=== PATIENT | female | born 1990 | race Caucasian/White ===

== ENCOUNTER 2016-12-08 11:36 | Emergency (ER) | payer MEDICAID ==
[2016-12-08 17:25] LABS: Bilirubin,Urine NEG (Negative); Blood,Urine NEG (Negative); Ketones,Urine NEG (Negative); Leukocyte Esterase,Urine NEG (Negative); Nitrite,Urine NEG (Negative); Protein,Urine <15 mg/dL mg/dL (Negative); Urobilinogen,Urine < 2.0 mg/dL (<2.0); WBC,Urine < 1.0 /HPF (0.0-6.0)
--- NOTE | 2016-12-08 18:30 | Cat Scan Report ---
FINAL REPORT PROCEDURE: CT thoracic spine without contrast. TECHNIQUE: Computerized axial tomography of the thoracic spine was performed from C7 - L1 without contrast material. HISTORY: Patient fell, midline back pain. COMPARISON: No prior studies are available for comparison. FINDINGS: The thoracic vertebrae have normal height and alignment. There are no fractures. There is no subluxation. The disc spaces are well maintained. The spinal canal appears widely patent. The posterior elements appear intact. The paravertebral soft tissues are unremarkable. IMPRESSION: Normal study.
--- NOTE | 2016-12-08 18:34 | Cat Scan Report ---
FINAL REPORT PROCEDURE: CT lumbar spine without contrast. TECHNIQUE: Computerized axial tomography of the lumbar spine was performed from T12 to the sacrum without contrast material. HISTORY: Patient fell, midline back pain. COMPARISON: No prior studies are available for comparison. FINDINGS: The lumbar vertebrae have normal height and alignment. There are no fractures. There is no spondylolisthesis. The disc spaces are well maintained. There are no definite disc protrusions, although this is much better evaluated by MRI scanning. The spinal canal appears widely patent. The posterior elements appear intact. The paravertebral soft tissues are unremarkable. IMPRESSION: Normal study.
--- NOTE | 2016-12-08 19:19 | Emergency Department Report ---
Entered by MEENU WALLACE, acting as scribe for DENNIS MOSS PA. ED Fall HPI - General Chief Complaint: Fall Stated Complaint: FALL Time Seen by Provider: 12/08/16 15:00 Source: patient Mode of arrival: Ambulatory Limitations: No Limitations - History of Present Illness Initial Comments: 26 y/o female with a PMHx of Kawasaki disease presents to the ED c/o mid-back pain secondary to a fall that occurred last night. Patient states that she was walking while holding daughter and subsequently fell down 4 steps. Rates mid back pain an 8/10 in severity. Denies nausea, vomiting, urgency, frequency, dysuria, bowel/urinary incontinence, LOC, and numbness/tingling in legs. Denies head injury. Denies previous Hx of back pain. Denies taking OTC medications for mid back pain with no relief. LMP 11/06/2016. Complaint: fall -: Last night Fall From: down stairs (#) (4) When Fall Occurred: other (last night) Fall Witnessed: yes, by family Place Fall Occurred: home Loss of Consciousness: none Prolonged Down Time?: no Symptoms Prior to Fall: none Location: back (mid back and lower back pain) Severity: moderate Severity scale (0 -10): 8 Quality: aching Context: tripped/slipped Associated Symptoms: headache, other (mid back pain, but denies nausea, vomiting , frequency, dysuria, bowel/urinary incontinence, numbness/tingling in bilateral legs). denies: neck pain, numbness, weakness, chest paint, shortness of breath, abdominal pain, hematuria, unable to walk, lightheaded, vertigo, confusion - Related Data Previous Rx's Medication Instructions Recorded Last Taken Type Cyclobenzaprine [Flexeril] 10 mg PO TID PRN #15 tablet 12/08/16 Unknown Rx Ibuprofen [Motrin] 600 mg PO Q8H PRN #15 tablet 12/08/16 Unknown Rx Allergies Allergy/AdvReac Type Severity Reaction Status Date / Time No Known Allergies Allergy Verified 12/08/16 12:37 ED Review of Systems Comment: All other systems reviewed and negative Constitutional: denies: chills, other (tingling in legs) Eyes: denies: vision change ENT: denies: throat pain, epistaxis Respiratory: no symptoms reported Cardiovascular: denies: chest pain, palpitations, edema, syncope Gastrointestinal: denies: abdominal pain, nausea, vomiting Genitourinary: denies: urgency, dysuria, frequency, hematuria, other (bowel/ urinary incontinence) Musculoskeletal: back pain (mid back pain and lower back pain) Skin: denies: rash Neurological: headache. denies: numbness (numbness in legs), paresthesias, confusion, abnormal gait, vertigo ED Past Medical Hx - Past Medical History Previous Medical History?: Yes Additional medical history: kawasaki disease, dental caries - Surgical History Past Surgical History?: Yes Additional Surgical History: 03/15/2010 - Family History Family history: no significant - Social History Smoking Status: Never Smoker Substance Use Type: None - Medications Home Medications: Home Medications Medication Instructions Recorded Confirmed Last Taken Type Cyclobenzaprine [Flexeril] 10 mg PO TID PRN #15 tablet 12/08/16 Unknown Rx Ibuprofen [Motrin] 600 mg PO Q8H PRN #15 tablet 12/08/16 Unknown Rx ED Physical Exam - General Limitations: No Limitations General appearance: alert, in no apparent distress - Head Head exam: Present: atraumatic, normocephalic - Expanded Head Exam Expanded Head exam: Absent: laceration, abrasion, contusion, hematoma, racoon eyes, lane's sign, general tenderness, tenderness of temporal artery, CSF rhinorrhea , CSF otorrhea - Eye Eye exam: Present: normal appearance, PERRL, EOMI. Absent: nystagmus, periorbital swelling, periorbital tenderness Pupils: Present: normal accommodation - ENT ENT exam: Present: normal exam, normal orophraynx, mucous membranes moist, TM's normal bilaterally, normal external ear exam - Neck Neck exam: Present: normal inspection (supple), full ROM. Absent: tenderness, meningismus, lymphadenopathy - Expanded Neck Exam Expanded Neck exam: Absent: tenderness, midline deformity, anterior neck swelling, tracheal deviation - Respiratory Respiratory exam: Present: normal lung sounds bilaterally. Absent: respiratory distress, wheezes, rales, rhonchi, chest wall tenderness - Cardiovascular Cardiovascular Exam: Present: regular rate, normal rhythm, normal heart sounds. Absent: systolic murmur, diastolic murmur, rubs, gallop - GI/Abdominal GI/Abdominal exam: Present: soft, normal bowel sounds. Absent: distended, tenderness, guarding, rebound, rigid - Extremities Exam Extremities exam: Present: normal inspection, full ROM, normal capillary refill. Absent: tenderness, pedal edema, joint swelling, calf tenderness - Back Exam Back exam: Present: normal inspection, full ROM, tenderness (lumbar, thoracic vertebral tenderness), vertebral tenderness (lumbar vertebral tenderness), other (low back pain with squatting) - Expanded Back Exam Expanded Back exam: Absent: saddle anesthesia Back exam: Negative Straight Leg Raising: Left, Right - Neurological Exam Neurological exam: Present: alert, oriented X3, normal gait, reflexes normal. Absent: motor sensory deficit - Expanded Neurological Exam Expanded Neurological exam: Absent: innattentive, memory loss-remote event, memory loss- recent event, ataxia, receptive aphasia, expressive aphasia, total aphasia, tremor, protecting the airway Patient oriented to: Present: person, place Speech: Present: fluid speech Cranial nerves: EOM's Intact: Normal, Gag Reflex: Normal, Tongue Deviation: Normal, Nystagmus: Normal, Facial Sensation: Normal Cerebellar function: Finger to Nose: Normal, Romberg: Normal Upper motor neuron: Pronator Drift: Normal, Sensory Extinction: Normal Sensory exam: Upper Extremity Light Touch: Normal, Upper Extremity Temperature: Normal, UE 2 Point Discrimination: Normal, Lower Extremity Light Touch: Normal, Lower Extremity Temperature: Normal, LE 2 Point Discrimination: Normal Motor strength exam: RUE: 5, LUE: 5, RLE: 5, LLE: 5 DTR: bicep (R): 2+, bicep (L): 2+, tricep (R): 2+, tricep (L): 2+, knee (R): 2+ , knee (L): 2+, ankle (R): 2+, ankle (L): 2+ Best Eye Response (Hunter): (4) open spontaneously Best Motor Response (Union): (6) obeys commands Best Verbal Response (Union): (5) oriented Union Total: 15 - Psychiatric Psychiatric exam: Present: normal affect, normal mood - Skin Skin exam: Present: warm, dry, intact, normal color. Absent: rash ED Course Vital Signs 12/08/16 12:37 Temperature 98.4 F Pulse Rate 64 Respiratory 17 Rate Blood Pressure 139/80 O2 Sat by Pulse 100 Oximetry - Reevaluation(s) Reevaluation #1: 12/08/16 19:11 Stable throughout ED stay ED Medical Decision Making - Lab Data Lab Results 12/08/16 Range/Units Unknown Urine Color Colorless (Yellow) Urine Turbidity Clear (Clear) Urine pH 8.0 H (5.0-7.0) Ur Specific [place] 1.006 (1.003-1.030) Urine Protein <15 mg/dl (Negative) mg/dL Urine Glucose (UA) Neg (Negative) mg/dL Urine Ketones Neg (Negative) mg/dL Urine Blood Neg (Negative) Urine Nitrite Neg (Negative) Ur Reducing Substances Not Reportable Urine Bilirubin Neg (Negative) Urine Ictotest Not Reportable Urine Urobilinogen < 2.0 (<2.0) mg/dL Ur Leukocyte Esterase Neg (Negative) Urine WBC (Auto) < 1.0 (0.0-6.0) /HPF Urine RBC (Auto) 0.0 (0.0-6.0) /HPF Urine HCG, Qual Negative (Negative) - Radiology Data Radiology results: report reviewed CT scan of the thoracic and lumbar spine revealed normal exam. - Medical Decision Making ED course: Patient here complaining of thoracic and lumbar spine pain after falling last night. CT scan revealed normal thoracic and lumbar spine. I discussed with patient in detail. I discussed with her she continues to have pain to follow-up with orthopedic doctor. Patient discharged home in stable condition with prescription for Motrin and Flexeril. ED Disposition Clinical Impression: Fall from ground level, Pain of thoracolumbar region of spine Disposition: DISCHARGED TO HOME OR SELFCARE Is pt being admited?: No Does the pt Need Aspirin: No Condition: Stable Instructions: Back Pain (ED), Fall Prevention (ED) Additional Instructions: Follow-up with orthopedic doctor in 5 days if he continued to have pain he experienced loss of bowel or bladder function. Do not take Flexeril while driving out of this medication will cause drowsiness. Prescriptions: Cyclobenzaprine [Flexeril] 10 mg PO TID PRN #15 tablet PRN Reason: Muscle Spasm Ibuprofen [Motrin] 600 mg PO Q8H PRN #15 tablet PRN Reason: Pain Referrals: SHAMAR BRADLEY MD [Staff Physician] - 12/13/16 Forms: Work/School Release Form(ED) This documentation as recorded by the scribRODRIGO boone JASMINE,accurately reflects the service I personally performed and the decisions made by me,DENNIS MOSS PA.
[2016-12-08 19:34] VITALS: BP 123/67
== END 2016-12-08 19:34 | disposition home or self-care (01) ==
LOC: ED 11:36
DX: M54.6 Pain in thoracic spine (principal); M54.5 Low back pain; W18.30XA Fall on same level, unspecified, initial encounter; Y93.9 Activity, unspecified; Y92.9 Unspecified place or not applicable; Y99.9 Unspecified external cause status
CPT/HCPCS: 72128; 72131; 81001; 81025; 99284

== ENCOUNTER 2017-06-05 14:59 | Emergency (ER) | payer MEDICAID ==
[2017-06-05 15:16] VITALS: BP 120/72
--- NOTE | 2017-06-05 18:32 | Emergency Department Report ---
ED ENT HPI - General Chief complaint: Dental/Oral Stated complaint: ABSCESS, TOOTHACHE Time Seen by Provider: 06/05/17 17:42 Source: patient Mode of arrival: Ambulatory Limitations: No Limitations - History of Present Illness Initial comments: 27-year-old female past medical history Kawasaki disease presents with complaint of 2 weeks of persistent right side lower dental pain. Patient states that she has had a large cavity in this tooth for several weeks and the pain is beginning to intensify near her tooth. Speaking in full sentences no visible trismus or drooling denies any pus or blood drainage from mouth. Denies any fevers or chills. States that she has a dental appointment tomorrow. Has been taking [id number] Tylenol minimal relief of her pain. Last menstrual period 10/19. Patient is currently . MD complaint: tooth pain Onset/Timin -: week(s) Location: tooth # (29) Severity: moderate Severity scale (0 -10): 7 Quality: aching Consistency: constant Improves with: none Worsens with: none Context- Dental: history of dental caries Associated Symptoms: toothache - Related Data Previous Rx's Medication Instructions Recorded Last Taken Type Cyclobenzaprine [Flexeril] 10 mg PO TID PRN #15 tablet 12/08/16 Unknown Rx Ibuprofen [Motrin] 600 mg PO Q8H PRN #15 tablet 12/08/16 Unknown Rx Acetaminophen [Tylenol Extra 500 mg PO Q6H PRN #30 tablet 06/05/17 Unknown Rx Strength] Amoxicillin [Trimox CAP] 500 mg PO Q8H #30 capsule 06/05/17 Unknown Rx Benzocaine [Orajel Liquid 20%] 1 ml MM Q6HR PRN #1 bottle 06/05/17 Unknown Rx Chlorhexidine Mouthwash [Peridex] 15 ml MM BID #1 bottle 06/05/17 Unknown Rx Allergies Allergy/AdvReac Type Severity Reaction Status Date / Time No Known Allergies Allergy Verified 12/08/16 12:37 ED Dental HPI - General Chief complaint: Dental/Oral Stated complaint: ABSCESS, TOOTHACHE Time Seen by Provider: 06/05/17 17:42 Source: patient Mode of arrival: Ambulatory Limitations: No Limitations - Related Data Previous Rx's Medication Instructions Recorded Last Taken Type Cyclobenzaprine [Flexeril] 10 mg PO TID PRN #15 tablet 12/08/16 Unknown Rx Ibuprofen [Motrin] 600 mg PO Q8H PRN #15 tablet 12/08/16 Unknown Rx Acetaminophen [Tylenol Extra 500 mg PO Q6H PRN #30 tablet 06/05/17 Unknown Rx Strength] Amoxicillin [Trimox CAP] 500 mg PO Q8H #30 capsule 06/05/17 Unknown Rx Benzocaine [Orajel Liquid 20%] 1 ml MM Q6HR PRN #1 bottle 06/05/17 Unknown Rx Chlorhexidine Mouthwash [Peridex] 15 ml MM BID #1 bottle 06/05/17 Unknown Rx Allergies Allergy/AdvReac Type Severity Reaction Status Date / Time No Known Allergies Allergy Verified 12/08/16 12:37 ED Review of Systems ROS: Stated complaint: ABSCESS, TOOTHACHE Other details as noted in HPI Constitutional: denies: chills, fever Eyes: denies: eye pain, eye discharge, vision change ENT: dental pain. denies: ear pain, throat pain Respiratory: denies: cough, shortness of breath, wheezing Cardiovascular: denies: chest pain, palpitations Endocrine: no symptoms reported Gastrointestinal: denies: abdominal pain, nausea, diarrhea Genitourinary: denies: urgency, dysuria, discharge Musculoskeletal: denies: back pain, joint swelling, arthralgia Skin: denies: rash, lesions Neurological: denies: headache, weakness, paresthesias Psychiatric: denies: anxiety, depression Hematological/Lymphatic: denies: easy bleeding, easy bruising ED Past Medical Hx - Past Medical History Previous Medical History?: No Additional medical history: kawasaki disease, dental caries - Surgical History Additional Surgical History: 03/15/2010 - Social History Smoking Status: Never Smoker Substance Use Type: None - Medications Home Medications: Home Medications Medication Instructions Recorded Confirmed Last Taken Type Cyclobenzaprine [Flexeril] 10 mg PO TID PRN #15 tablet 12/08/16 Unknown Rx Ibuprofen [Motrin] 600 mg PO Q8H PRN #15 tablet 12/08/16 Unknown Rx Acetaminophen [Tylenol Extra 500 mg PO Q6H PRN #30 tablet 06/05/17 Unknown Rx Strength] Amoxicillin [Trimox CAP] 500 mg PO Q8H #30 capsule 06/05/17 Unknown Rx Benzocaine [Orajel Liquid 20%] 1 ml MM Q6HR PRN #1 bottle 06/05/17 Unknown Rx Chlorhexidine Mouthwash [Peridex] 15 ml MM BID #1 bottle 06/05/17 Unknown Rx ED Physical Exam - General Limitations: No Limitations General appearance: alert, in no apparent distress - Head Head exam: Present: atraumatic, normocephalic - Eye Eye exam: Present: normal appearance, PERRL, EOMI - ENT ENT exam: Present: mucous membranes moist - Expanded ENT Exam Expanded Teeth exam: Present: dental caries, dental tenderness # 1 - Other (dental pain here, visible dental fracture) - Neck Neck exam: Present: normal inspection - Respiratory Respiratory exam: Present: normal lung sounds bilaterally. Absent: respiratory distress - Cardiovascular Cardiovascular Exam: Present: regular rate, normal rhythm. Absent: systolic murmur, diastolic murmur, rubs, gallop - GI/Abdominal GI/Abdominal exam: Present: soft, normal bowel sounds - Extremities Exam Extremities exam: Present: normal inspection - Back Exam Back exam: Present: normal inspection - Neurological Exam Neurological exam: Present: alert, oriented X3, CN II-XII intact, normal gait - Psychiatric Psychiatric exam: Present: normal affect, normal mood - Skin Skin exam: Present: warm, dry, intact, normal color. Absent: rash ED Course Vital Signs 06/05/17 15:13 Temperature 97.8 F Pulse Rate 85 Respiratory 18 Rate Blood Pressure 120/72 O2 Sat by Pulse 100 Oximetry ED Medical Decision Making - Medical Decision Making A/P: dental cavities, toothache 1- Motrin when necessary, amoxicillin ten-day course, Orajel when necessary, Peridex mouthwash daily basis 2- I provided patient with information for multiple dental clinics to follow up and stressed the importance of dental follow-up as he has multiple cavities that require dental fixation or instrumentation 3- no clinical signs of facial abscess, no Dylan's angina, no induration or cellulitis of floor of mouth or tongue 4- patient able to tolerate by mouth before discharge 5- no signs of facial infection. Advised patient that if he does not take antibiotics with follow-up with a dentist as soon as possible that a can result in potentially serious or dangerous infection to develop in jaw or face. Patient states that he understood these instructions. I advised patient to return to the ED for any persistent unrelenting nausea or vomiting fever or chills or headaches. Critical care attestation.: If time is entered above; I have spent that time in minutes in the direct care of this critically ill patient, excluding procedure time. ED Disposition Clinical Impression: Toothache Disposition: TO HOME OR SELFCARE Is pt being admited?: No Does the pt Need Aspirin: No Condition: Stable Instructions: Dental Caries (ED), Toothache (ED) Prescriptions: Acetaminophen [Tylenol Extra Strength] 500 mg PO Q6H PRN #30 tablet PRN Reason: Toothache Amoxicillin [Trimox CAP] 500 mg PO Q8H #30 capsule Benzocaine [Orajel Liquid 20%] 1 ml MM Q6HR PRN #1 bottle PRN Reason: Toothache Chlorhexidine Mouthwash [Peridex] 15 ml MM BID #1 bottle Referrals: [facility] [Outside] - 3-5 Days Forms: Work/School Release Form(ED) Time of Disposition: 19:10
== END 2017-06-05 19:50 | disposition home or self-care (01) ==
LOC: ED 14:59
DX: K08.89 Other specified disorders of teeth and supporting structures (principal)
CPT/HCPCS: 99282

== ENCOUNTER 2017-07-20 07:30 | Inpatient (IN) | payer MEDICAID ==
--- NOTE | 2017-07-20 20:40 | History and Physical Report ---
History of Present Illness Date of examination: 07/20/17 Date of admission: 07/21/17 Chief complaint: scheduled repeat section History of present illness: 27 yo at 39 weeks scheduled for repeat csec. She is a patient of [facility] starting at 13 weeks. She is non compliant and laspe of care from 20-36 weeks. She has a hx of trich which was treated and on methadone for drug abuse. She is here for scheduled repeat. EDC based on LMP 07/25/17 . 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 denies: alcohol abuse, prescription drug abuse - Obstetrical History Expected Date of Delivery: 07/25/17 Actual Gestation: 39 Week(s) 3 Day(s) : 2 Para: 1 Hx # Term Pregnancies: 1 Number of Pregnancies: 0 Spontaneous Abortions: 0 Induced : 0 Number of Living Children: 1 Medications and Allergies Allergies Allergy/AdvReac Type Severity Reaction Status Date / Time No Known Allergies Allergy Verified 12/08/16 12:37 Home Medications Medication Instructions Recorded Confirmed Last Taken Type Cyclobenzaprine [Flexeril] 10 mg PO TID PRN #15 tablet 12/08/16 Unknown Rx Ibuprofen [Motrin] 600 mg PO Q8H PRN #15 tablet 12/08/16 Unknown Rx Acetaminophen [Tylenol Extra 500 mg PO Q6H PRN #30 tablet 06/05/17 Unknown Rx Strength] Amoxicillin [Trimox CAP] 500 mg PO Q8H #30 capsule 06/05/17 Unknown Rx Benzocaine [Orajel Liquid 20%] 1 ml MM Q6HR PRN #1 bottle 06/05/17 Unknown Rx Chlorhexidine Mouthwash [Peridex] 15 ml MM BID #1 bottle 06/05/17 Unknown Rx Review of Systems All systems: negative - Physical Exam Breasts: Positive: normal Cardiovascular: Regular rate, Normal S1 Lungs: Positive: Clear to auscultation, Normal air movement Abdomen: Positive: normal appearance, distention, tenderness, normal bowel sounds Genitourinary (Female): Positive: normal external genitalia, normal perenium Vulva: both: normal Vagina: Positive: normal moisture Uterus: Positive: normal size Adnexa: both: normal Anus/Rectum: Positive: normal perianal skin Extremities: Positive: normal Deep Tendon Reflex Grade: Normal +2 Results Result Diagrams: 07/21/17 11:20 All other labs normal. Assessment and Plan A/P IUP 39+2 weeks scheduled c/sec IVF and labs discussed r/b/a which include but not limited to bleeding infection daage to pelvic and non pelvic organs. risk of hysterectomy and patient desires to proceed
[2017-07-20] MEDS ORDERED: BICITRA PO ONE (20:48)
[2017-07-20] MEDS ORDERED: REGLAN IV NR (20:48)
[2017-07-20] MEDS ORDERED: PEPCID IV NR (20:48)
[2017-07-20] MEDS ORDERED: LACTATED RINGERS 1,000 ML IV SCH (21:00)
[2017-07-20] MEDS ORDERED: ANCEF/STERILE WATER 2 GM/20 ML 2 GM/20 ML SYRINGE IV NR (21:00)
[2017-07-20] MEDS ORDERED: PITOCin/NS 20 UNIT/1000ML DRIP 20 UNITS/1,000 ML BAG IV SCH (21:00)
[2017-07-21] MEDS ORDERED: LACTATED RINGERS 1,000 ML ONE (10:59)
[2017-07-21 11:42] LABS: Basophils % (Auto) 0.3 % (0.0-1.8); Eosinophils % (Auto) 0.3 % (0.0-4.3); Hematocrit 40.4 % (30.3-42.9); Hemoglobin 13.3 gm/dl (10.1-14.3); Lymphocytes # (Auto) 2.1 K/mm3 (1.2-5.4); Lymphocytes % (Auto) 19.9 % (13.4-35.0); Mean Corpuscular HGB Conc 33 % (30-34); Mean Corpuscular Hemoglobin 28 pg (28-32); Mean Corpuscular Volume 84 fl (79-97); Monocytes # (Auto) 0.5 K/mm3 (0.0-0.8); Monocytes % (Auto) 4.8 % (0.0-7.3); Platelet Count 207 K/mm3 (140-440); Red Blood Count 4.78 M/mm3 (3.65-5.03); Red Cell Distribution Width 13.6 % (13.2-15.2)
[2017-07-21] MEDS ORDERED: BICITRA PO NR (12:00)
--- NOTE | 2017-07-21 12:08 | Anesthesia Consultation ---
Anesthesia Consult and Med Hx Date of service: 07/21/17 - Airway Anesthetic Teeth Evaluation: Good ROM Head & Neck: Adequate Mental/Hyoid Distance: Adequate Mallampati Class: Class II Intubation Access Assessment: Probably Good - Pulmonary Exam CTA: Yes - Cardiac Exam Cardiac Exam: RRR - Pre-Operative Health Status ASA Pre-Surgery Classification: ASA2 Proposed Anesthetic Plan: Spinal - Pulmonary Hx Asthma: No COPD: No Hx Pneumonia: No - Cardiovascular System Hx Hypertension: No - Central Nervous System Hx Seizures: No Hx Psychiatric Problems: No - Endocrine Hx Renal Disease: No Hx End Stage Renal Disease: No Hx Hypothyroidism: No Hx Hyperthyroidism: No - Hematic Hx Anemia: No Hx Sickle Cell Disease: No - Other Systems Hx Alcohol Use: No Hx Obesity: Yes - Additional Comments Anesthesia Medical History Comments: H/O prescription narcotic abuse, now on methadone.
--- NOTE | 2017-07-21 12:09 | Anesthesia Day of Surgery ---
Anesthesia Day of Surgery - Day of Surgery Patient Examined: Yes Patient H&P Reviewed: Yes Patient is NPO: Yes
[2017-07-21] MEDS ORDERED: MORPHINE ONE (13:07)
[2017-07-21] MEDS ORDERED: NEO SYNEPHRINE/NS Syringe(OR USE) IV ONE (13:21)
--- NOTE | 2017-07-21 14:29 | Operative Report ---
Operative Report Operative Report: DATE OF OPERATION: 07/21/2017 PREOPERATIVE DIAGNOSES: 1. Prior section. 2. Declines vaginal after . 3. A 39 weeks gestation. POSTOPERATIVE DIAGNOSES: 1. Prior section. 2. Declines vaginal after . 3. A 39 weeks gestation. OPERATION PERFORMED: Repeat low transverse . SURGEON: Anna Cobb MD GENERAL HELPER: Anna Cobb MD ANESTHESIA: Spinal. ESTIMATED BLOOD LOSS: 800 mL. FINDINGS: A viable male weighing 3292 grams with Apgars of 8 and 9. COMPLICATIONS: None. DISPOSITION: Stable. DESCRIPTION OF OPERATION: After informed consent was obtained, the patient was brought back to the operative suite where adequate spinal anesthesia was obtained. The patient was then placed in the dorsal supine position and prepped and draped in the sterile fashion. A repeat Pfannenstiel skin incision was made with a blade and carried down through the subcutaneous tissues to the fascia, which was extended in the transverse fascia with Manzano scissors. The fascial incision was then dissected off the rectus muscles both bluntly and sharply. The rectus muscle was in the midline. The peritoneum was entered bluntly. The peritoneal incision was then extended both superiorly and inferiorly with good visualization of the underlying bowel and bladder. The bladder blade was placed, and the vesicouterine fascia was incised to create a bladder flap in a low transverse position. This was developed digitally. A low transverse uterine incision was made with the blade and carried down through the layers of the uterus until membranes bulged through the incision. The uterine incision was then extended digitally. Hand was placed inside the pelvis, and the head was brought up out of the pelvis and delivered atraumatically with gentle fundal pressure. Prior to the head being delivered, actually through the skin, the sound of the baby starting to cry was noted. After the head was delivered, the mouth and nares were aggressively bulb suctioned. Remainder of the was delivered, and the infant was passed to the awaiting nursing staff for additional care. Cord was doubly clamped and cut and cord blood was obtained. The placenta was then manually extracted, and the uterus was exteriorized. The uterus was cleaned of remaining clot. The uterine incision was readily identified and closed in two layers, first one with running locking followed by second imbricating layer of 0 Vicryl. The vesicouterine fascia was then reapproximated with 2-0 Vicryl. The adnexa were within normal limits. The uterus was placed back inside the pelvis. Copious irrigation and inspection of the incision was satisfactory. The peritoneum was then closed with 2-0 Vicryl in a running fashion. The fascia was closed with 1 Vicryl from one angle to the next. Subcutaneous tissues were copiously irrigated , and final bleeders were cauterized. The incision was then reapproximated with snow needle. Patient tolerated procedure well
[2017-07-21] MEDS ORDERED: MYLICON PO PRN (14:30)
[2017-07-21] MEDS ORDERED: MORPHINE IV PRN ×2 (14:30)
[2017-07-21] MEDS ORDERED: NARCAN 0.4 MG/1 ML IV PRN (14:30)
[2017-07-21] MEDS ORDERED: TORADOL IV PRN (14:30)
[2017-07-21] MEDS ORDERED: ZOFRAN IV PRN (14:30)
[2017-07-21] MEDS ORDERED: TUCKS PAD TP PRN (14:30)
[2017-07-21] MEDS ORDERED: PHENERGAN PR PRN (14:30)
[2017-07-21] MEDS ORDERED: TYLENOL PO PRN (14:30)
[2017-07-21] MEDS ORDERED: PITOCin/NS 20 UNIT/1000ML DRIP 20 UNITS/1,000 ML BAG IV SCH (15:00)
[2017-07-21] MEDS ORDERED: D5LR 1,000 ML IV SCH (15:00)
[2017-07-21] MEDS ORDERED: SODIUM CHLORIDE FLUSH SYRINGE 10 ML IV PRN (15:00)
[2017-07-21 15:55] LABS: Amphetamine Screen,Urine PRESUMPTIVE NEGATIVE; Benzodiazepines Screen,Urine PRESUMPTIVE NEGATIVE; Cannabinoid Screen,Urine PRESUMPTIVE NEGATIVE; Cocaine Screen,Urine PRESUMPTIVE NEGATIVE; Opiate Screen,Urine PRESUMPTIVE NEGATIVE
[2017-07-21 16:16] LABS: Methadone Screen,Urine PRESUMPTIVE POSITIVE
[2017-07-21] MEDS: NORCO 5/325 PO PRN (21:47)
[2017-07-21] MEDS ORDERED: SENOKOT PO PRN (22:00)
[2017-07-21] MEDS ORDERED: ANUCORT-HC PR PRN (22:00)
[2017-07-22 01:37] LABS: Hematocrit 36.3 % (30.3-42.9)
[2017-07-22] MEDS: NORCO 5/325 PO PRN (04:21)
[2017-07-22] MEDS ORDERED: BOOSTRIX IM ONE (06:00)
--- NOTE | 2017-07-22 08:23 | Progress Note ---
Assessment and Plan A/P POD#1 s/p repeat c/sec doing well tolerating clears -advance diet as tolerated called methadone clinic to clarify dose routine Post op orders Subjective - Subjective Date of service: 07/22/17 Principal diagnosis: s/p repeat c/sec Interval history: 27 yo at 39 weeks scheduled for repeat csec. She is a patient of [facility] starting at 13 weeks. She is non compliant and laspe of care from 20-36 weeks. She has a hx of trich which was treated and on methadone for drug abuse. She is here for scheduled repeat. EDC based on LMP 07/25/17 . labs: hep neg Rubella IMM O+ antibody screen neg H/H 38.4 PLT 308 Quad neg Sickle neg CF neg HIV neg HSV2 neg glucose 91 chlam neg lee neg GBS neg Trich + Patient reports: appetite normal, voiding normally, pain well controlled, ambulating normally, no flatus : doing well Objective - Vital Signs Latest vital signs: Vital Signs Temp Pulse Resp BP BP Pulse Ox 07/22/17 04:21 18 07/22/17 04:00 99.1 F 61 20 115/61 93 07/22/17 01:00 98.1 F 71 20 120/64 96 07/21/17 21:47 18 07/21/17 20:40 97.5 F L 59 L 18 157/78 98 07/21/17 15:50 97.4 F L 60 16 139/92 07/21/17 15:26 97.8 F 07/21/17 14:25 97.8 F 07/21/17 11:47 72 112/73 07/21/17 11:40 98.4 F 18 Intake and Output 07/21/17 07/22/17 07/22/17 23:59 07:59 15:59 Intake Total 120 240 Output Total 1200 1400 Balance -1080 -1160 Intake: Oral 120 240 Output: Urine 1200 1400 Indwelling Catheter 900 Uretheral (Soriano) 1200 500 Other: Total, Intake Amount 120 120 Total, Output Amount 300 - Exam Breasts: Present: normal Cardiovascular: Present: Regular rate, Normal S1 Lungs: Present: Clear to auscultation, Normal air movement Abdomen: Present: normal appearance, soft, normal bowel sounds. Absent: distention, tenderness, guarding Vulva: both: normal Uterus: Present: normal, firm, fundal height below umbilicus. Absent: bogginess , tenderness Extremities: Present: normal Deep Tendon Reflex Grade: Normal +2 Incision: Present: normal, dry, intact - Labs Labs: Abnormal lab results 07/21/17 Range/Units 11:20 Seg Neutrophils % 74.7 H (40.0-70.0) % Seg Neutrophils # 8.1 H (1.8-7.7) K/mm3
[2017-07-22] MEDS: PERCOCET 5/325 PO PRN (09:11)
[2017-07-22] MEDS: LANSINOH TP PRN (09:12)
[2017-07-22] MEDS: MOTRIN PO PRN (09:17)
[2017-07-22] MEDS ORDERED: DOLOPHINE PO SCH (12:00)
[2017-07-22] MEDS: PRENATAL VITAMIN PO SCH (12:01)
[2017-07-22] MEDS: FEOSOL PO SCH (12:01)
[2017-07-22] MEDS ORDERED: M-M-R II VACCINE SUB-Q ONE (14:30)
[2017-07-23] MEDS: PERCOCET 5/325 PO PRN ×3 (01:15→16:32)
[2017-07-23] MEDS: MOTRIN PO PRN ×3 (01:18→16:31)
[2017-07-23] MEDS ORDERED: BOOSTRIX IM ONE (06:00)
--- NOTE | 2017-07-23 07:22 | Progress Note ---
Assessment and Plan - Patient Problems (1) Insufficient care Current Visit: Yes Status: Acute Plan to address problem: Routine postoperative care (2) Previous delivery, delivered Current Visit: Yes Status: Acute Subjective - Subjective Date of service: 07/23/17 Principal diagnosis: s/p repeat c/sec Interval history: The patient states she is tolerating a regular diet. Her pain is well- controlled. She has voided since removal of her Soriano. Patient reports: appetite normal, voiding normally, pain well controlled [place]: doing well Objective - Vital Signs Latest vital signs: Vital Signs Temp Pulse Resp BP BP Pulse Ox 07/23/17 01:18 18 07/23/17 01:15 20 07/23/17 00:44 98.0 F 75 18 113/65 98 07/22/17 17:44 97.9 F 81 20 124/76 124/76 97 07/22/17 11:51 98.9 F 70 18 136/78 136/78 96 07/22/17 08:22 98.7 F 53 L 20 136/69 96 Intake and Output 07/22/17 07/23/17 07/23/17 22:59 06:59 14:59 Intake Total 360 Balance 360 Intake: Oral 360 Other: Total, Intake Amount 360 # Voids Void 1 - Exam Abdomen: Present: normal appearance, soft Incision: Present: dressed
[2017-07-23] MEDS: FEOSOL PO SCH (09:31)
[2017-07-23] MEDS: PRENATAL VITAMIN PO SCH (09:31)
[2017-07-23] MEDS: MILK OF MAGNESIA PO PRN (09:39)
[2017-07-23] MEDS ORDERED: Fluarix Quad 2017-2018(36 MOS+ IM ONE (12:00)
[2017-07-24] MEDS: PERCOCET 5/325 PO PRN ×3 (05:16→18:10)
[2017-07-24] MEDS: MOTRIN PO PRN ×3 (05:17→18:10)
--- NOTE | 2017-07-24 10:07 | Progress Note ---
Assessment and Plan - Patient Problems (1) Insufficient care Current Visit: Yes Status: Acute Plan to address problem: Patient doing well Discharge patient home once infant is discharged (2) Previous delivery, delivered Current Visit: Yes Status: Acute Subjective - Subjective Date of service: 07/24/17 Principal diagnosis: s/p repeat c/sec Interval history: The patient states she is tolerating a regular diet. Her pain is well- controlled. The patient is without any significant complaints. Patient reports: appetite normal, voiding normally, pain well controlled : doing well Objective - Vital Signs Latest vital signs: Vital Signs Temp Pulse Resp BP 07/24/17 05:17 20 07/24/17 05:16 20 07/24/17 01:30 98.6 F 77 18 101/77 07/23/17 17:10 98.3 F 68 18 138/78 Intake and Output 07/23/17 07/24/17 07/24/17 22:59 06:59 14:59 Intake Total 720 300 Balance 720 300 Intake: Oral 720 Intake, Free Water 300 Other: Total, Intake Amount 360 # Voids Void 1 - Exam Uterus: Present: normal, firm Incision: Present: normal, dry
--- NOTE | 2017-07-24 10:09 | Discharge Summary ---
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 She has had a relapse in her care during the . Her medical history is also significant for methadone use. Her course was uncomplicated. Condition at discharge: Good Disposition: DC-01 TO HOME OR SELFCARE - Discharge Diagnoses (1) Insufficient care Status: Acute (2) Previous delivery, delivered Status: Acute Plan - Discharge Medications Prescriptions: Ibuprofen [Motrin] 600 mg PO Q8H PRN #30 tablet PRN Reason: Pain oxyCODONE /ACETAMINOPHEN [Percocet 5/325] 1 tab PO Q6HR PRN #30 tablet PRN Reason: Pain - Provider Discharge Summary Activity: no sex for 6 weeks, no heavy lifting 4 weeks, no strenuous exercise Diet: routine Instructions: routine Additional instructions: [] Smoking cessation referral if applicable(refer to patient education folder for contact #) [] Refer to [facility] Booklet Call your doctor immediately for: * Fever > 100.5 * Heavy vaginal bleeding ( >1 pad per hour) * Severe persistent headache * Shortness of breath * Reddened, hot, painful area to leg or breast * Drainage or odor from incision. * Keep incision clean and dry at all times and follow doctor's instructions regarding bathing/showering Follow-up in 2 weeks for an incision check - Follow up plan
[2017-07-24] MEDS: PRENATAL VITAMIN PO SCH (11:09)
[2017-07-24] MEDS: FEOSOL PO SCH (11:09)
[2017-07-24] MEDS: MILK OF MAGNESIA PO PRN (17:40)
[2017-07-25] MEDS: PERCOCET 5/325 PO PRN (02:41)
[2017-07-25 09:40] VITALS: BP 119/63
[2017-07-25] MEDS: LANSINOH TP PRN (09:52)
[2017-07-25] MEDS: PRENATAL VITAMIN PO SCH (09:54)
[2017-07-25] MEDS: FEOSOL PO SCH (09:54)
== END 2017-07-25 12:10 | disposition home or self-care (01) | DRG 765 ==
LOC: APU 07-21 10:51 → OB 07-21 15:45
PROVIDERS: ADMIT Obstetrics & Gynecology; ATTEND Obstetrics & Gynecology
PROC: 10D00Z1 Extraction of Products of Conception, Low, Open Approach (ICD-10-PCS; principal; 2017-07-21)
PROC: 3E0234Z Introduction of Serum, Toxoid and Vaccine into Muscle, Percutaneous Approach (ICD-10-PCS; 2017-07-22)
DX: O34.211 Maternal care for low transverse scar from previous cesarean delivery (principal); O99.324 Drug use complicating childbirth; Z3A.39 39 weeks gestation of pregnancy; Z37.0 Single live birth; Z23 Encounter for immunization; O99.214 Obesity complicating childbirth; E66.9 Obesity, unspecified; Z68.38 Body mass index [BMI] 38.0-38.9, adult; F11.10 Opioid abuse, uncomplicated
CPT/HCPCS: 36415; 80307; 85014; 85018; 85025; 86592; 86850; 86900; 86901; 90686; 99211; A6250; C9250; G0463; J0690; J2270; J2370; J2590; J2765; J7120

== ENCOUNTER 2020-05-15 12:54 | Emergency (ER) | payer SELFPAY ==
--- NOTE | 2020-05-15 15:12 | Event Note ---
ED Screening Note ED Screening Note: Patient states that she has substernal chest pain which she describes as an aching She states that she was having a panic attack earlier today and could not calm down States that when the chest pain began, her heart was beating fast, she was breathing fast States symptoms have been improving No nausea, vomiting, diarrhea, cough, leg swelling No past medical history No allergies to medicines Endorses tobacco and alcohol use Last menstrual cycle This initial assessment/diagnostic orders/clinical plan/treatment(s) is/are subject to change based on patients health status, clinical progression and re- assessment by fellow clinical providers in the ED. Further treatment and workup at subsequent clinical providers discretion. Patient/guardian urged not to elope from the ED as their condition may be serious if not clinically assessed and managed. Initial orders include: Urine Chest x-ray
[2020-05-15 15:50] LABS: Basophils # (Auto) 0.1 K/mm3 (0.0-0.1); Basophils % (Auto) 0.8 % (0.0-1.8); Eosinophils % (Auto) 0.3 % (0.0-4.3); Hematocrit 40.2 % (30.3-42.9); Hemoglobin 13.5 gm/dl (10.1-14.3); Lymphocytes # (Auto) 2.7 K/mm3 (1.2-5.4); Lymphocytes % (Auto) 22.6 % (13.4-35.0); Mean Corpuscular HGB Conc 34 % (30-34); Mean Corpuscular Volume 84 fl (79-97); Monocytes # (Auto) 0.5 K/mm3 (0.0-0.8); Monocytes % (Auto) 4.5 % (0.0-7.3); Platelet Count 345 K/mm3 (140-440); Red Blood Count 4.79 M/mm3 (3.65-5.03); Red Cell Distribution Width 16.3 % (13.2-15.2)
[2020-05-15 16:14] LABS: Alanine Aminotransferase 32 units/L (7-56); Albumin 4.2 g/dL (3.9-5); Blood Urea Nitrogen 8 mg/dL (7-17); Calcium 9.2 mg/dL (8.4-10.2); Hemolysis Index 13
[2020-05-15 16:15] LABS: BUN/Creatinine Ratio 13
[2020-05-15 16:45] LABS: Bilirubin,Urine NEG (Negative); Blood,Urine NEG (Negative); Color,Urine Yellow (Yellow); Protein,Urine <15 mg/dL mg/dL (Negative); RBC,Urine < 1.0 /HPF (0.0-6.0); Urobilinogen,Urine < 2.0 mg/dL (<2.0)
--- NOTE | 2020-05-15 16:53 | XRay Report ---
CHEST PA AND LATERAL VIEWS INDICATION: CP. COMPARISON: None FINDINGS: Support devices: None Heart: Stable. Lungs/Pleura: No acute pulmonary or pleural findings. IMPRESSION: 1. No significant abnormality. Signer Name: Dimitry Reyes MD Signed: 05/15/2020 4:48 PM Workstation Name: [id number]
--- NOTE | 2020-05-15 16:53 | Emergency Department Report ---
ED Chest Pain HPI - General Chief Complaint: Chest Pain Stated Complaint: CHEST PAINS Time Seen by Provider: 05/15/20 15:11 Source: patient Mode of arrival: Ambulatory Limitations: No Limitations - History of Present Illness Initial Comments: This is a 30-year-old female nontoxic, well nourished in appearance, no acute signs of distress presents to the ED with c/o of left sided chest pain and SOB that started this afternoon. Patient stated she started to be anxious and right after developed SOB and chest pains. Patient currently denies any that anxiety has resolved. Patient denies any radiation of pain. Patient denies any upper respiratory symptoms. Patient denies any shortness of breath, hemoptysis, fever, chills, nausea, vomiting, headache, stiff neck, numbness, tingling, abdominal pain. Patient denies pleuritic chest pain. Patient denies any recent travels or long car rides. Patient denies any recent surgeries or any sick contacts. Patient denies any drug allergies or significant past medical history. MD Complaint: chest pain -: This afternoon Pain Location: left chest Pain Radiation: none Severity: mild Quality: sharp Consistency: now resolved Improves With: nothing Worsens With: nothing re: other (Anxiety). denies: nausea, vomting, diaphoresis, dyspnea, sense of impending doom Other Symptoms: denies: cough, fever, syncope, rash, acid taste in mouth, leg swelling, palpitations, burping Treatments Prior to Arrival: none Aspirin use within the Past 7 Days: (0) No - Related Data On Oral Contraceptives: No Previous Rx's Medication Instructions Recorded Last Taken Type Cyclobenzaprine [Flexeril] 10 mg PO TID PRN #15 tablet 12/08/16 Unknown Rx Ibuprofen [Motrin] 600 mg PO Q8H PRN #15 tablet 12/08/16 Unknown Rx Acetaminophen [Tylenol Extra 500 mg PO Q6H PRN #30 tablet 06/05/17 Unknown Rx Strength] Amoxicillin [Trimox CAP] 500 mg PO Q8H #30 capsule 06/05/17 Unknown Rx Benzocaine [Orajel Liquid 20%] 1 ml MM Q6HR PRN #1 bottle 06/05/17 Unknown Rx Chlorhexidine Mouthwash [Peridex] 15 ml MM BID #1 bottle 06/05/17 Unknown Rx Ibuprofen [Motrin] 600 mg PO Q8H PRN #30 tablet 07/21/17 Unknown Rx oxyCODONE /ACETAMINOPHEN [Percocet 1 tab PO Q6HR PRN #30 tablet 07/21/17 Unknown Rx 5/325] Allergies Allergy/AdvReac Type Severity Reaction Status Date / Time No Known Allergies Allergy Verified 12/08/16 12:37 Heart Score - HEART Score History: Slightly suspicious EKG: Normal Age: < 45 Risk factors: No known risk factors Troponin: < normal limit HEART Score: 0 ED Review of Systems ROS: Stated complaint: CHEST PAINS Other details as noted in HPI Constitutional: denies: chills, fever Eyes: denies: eye pain, eye discharge, vision change ENT: denies: ear pain, throat pain Respiratory: shortness of breath. denies: cough, wheezing Cardiovascular: chest pain. denies: palpitations Endocrine: no symptoms reported Gastrointestinal: denies: abdominal pain, nausea, diarrhea Genitourinary: denies: urgency, dysuria, discharge Musculoskeletal: denies: back pain, joint swelling, arthralgia Skin: denies: rash, lesions Neurological: denies: headache, weakness, paresthesias Psychiatric: denies: anxiety, depression Hematological/Lymphatic: denies: easy bleeding, easy bruising ED Past Medical Hx - Past Medical History Previous Medical History?: Yes Hx Hypertension: No Hx Congestive Heart Failure: No Hx Diabetes: No Hx Deep Vein Thrombosis: No Hx Renal Disease: No Hx Sickle Cell Disease: No Hx Seizures: No Hx Asthma: No Hx COPD: No Hx HIV: No Additional medical history: kawasaki disease, dental caries - Surgical History Past Surgical History?: Yes Additional Surgical History: 03/15/2010 - Social History Smoking Status: Never Smoker - Medications Home Medications: Home Medications Medication Instructions Recorded Confirmed Last Taken Type Cyclobenzaprine [Flexeril] 10 mg PO TID PRN #15 tablet 12/08/16 07/21/17 Unknown Rx Ibuprofen [Motrin] 600 mg PO Q8H PRN #15 tablet 12/08/16 07/21/17 Unknown Rx Acetaminophen [Tylenol Extra 500 mg PO Q6H PRN #30 tablet 06/05/17 07/21/17 Unknown Rx Strength] Amoxicillin [Trimox CAP] 500 mg PO Q8H #30 capsule 06/05/17 07/21/17 Unknown Rx Benzocaine [Orajel Liquid 20%] 1 ml MM Q6HR PRN #1 bottle 06/05/17 07/21/17 Unknown Rx Chlorhexidine Mouthwash [Peridex] 15 ml MM BID #1 bottle 06/05/17 07/21/17 Unknown Rx Ibuprofen [Motrin] 600 mg PO Q8H PRN #30 tablet 07/21/17 Unknown Rx oxyCODONE /ACETAMINOPHEN [Percocet 1 tab PO Q6HR PRN #30 tablet 07/21/17 Unknown Rx 5/325] ED Physical Exam - General Limitations: No Limitations General appearance: alert, in no apparent distress - Head Head exam: Present: atraumatic, normocephalic - Eye Eye exam: Present: normal appearance - Neck Neck exam: Present: normal inspection, full ROM. Absent: tenderness, meningismus, lymphadenopathy - Respiratory Respiratory exam: Present: normal lung sounds bilaterally. Absent: respiratory distress, wheezes, rales, rhonchi, stridor, chest wall tenderness, accessory muscle use, decreased breath sounds, prolonged expiratory - Cardiovascular Cardiovascular Exam: Present: regular rate, normal rhythm, normal heart sounds. Absent: irregular rhythm, systolic murmur, diastolic murmur, rubs, gallop - Extremities Exam Extremities exam: Present: full ROM - Back Exam Back exam: Present: normal inspection, full ROM. Absent: tenderness, CVA tenderness (R), CVA tenderness (L), muscle spasm, paraspinal tenderness, vertebral tenderness, rash noted - Neurological Exam Neurological exam: Present: alert, oriented X3, normal gait - Psychiatric Psychiatric exam: Present: normal affect, normal mood - Skin Skin exam: Present: warm, dry, intact, normal color. Absent: rash ED Course Vital Signs 05/15/20 13:20 Temperature 98.5 F Pulse Rate 107 H Respiratory 18 Rate Blood Pressure 181/93 [Right] O2 Sat by Pulse 97 Oximetry - Reevaluation(s) Reevaluation #1: 05/15/20 16:59 Patient is speaking in full sentences with no signs of distress noted. MICHAEL score - Michael Score Age > 65: (0) No Aspirin use within the Past 7 Days: (0) No 3 or more CAD Risk Factors: (0) No 2 or more Angina events in past 24 hrs: (0) No Known CAD with more than 50% Stenosis: (0) No Elevated Cardiac Markers: (0) No ST Deviation Greater than 0.5mm: (0) No MICHAEL Score: 0 ED Medical Decision Making - Lab Data Result diagrams: 05/15/20 15:26 05/15/20 15:26 - Medical Decision Making This is a 30-year-old female that presents with atypical chest pain versus anxiety. Patient is stable and was examined by me. MICHAEL and HEART score 0 pi nts. PERC score for DVT/SVT/PE 1 points. Negative d-dimmer. EKG normal sinus rhythm with no significant changes in ST. Chest xray dictated by the radiologist. PAtient is notified of the Xray report with no questions noted. Labs within normal limits. Negative troponin. Patient was instructed to Follow- up with a primary care/elementary special education teacher doctor in 2 days or if symptoms worsen and continue return to emergency room as soon as possible. At time of discharge, the patient does not seem toxic or ill in appearance. No acute signs of distress noted. Patient agrees to discharge treatment plan of care. No further questions noted by the patient. Critical care attestation.: If time is entered above; I have spent that time in minutes in the direct care of this critically ill patient, excluding procedure time. ED Disposition Clinical Impression: Atypical chest pain, Anxiety Disposition: DC-01 TO HOME OR SELFCARE Is pt being admited?: No Does the pt Need Aspirin: No Condition: Stable Instructions: Chest Pain (ED) Additional Instructions: Follow-up with a primary care/elementary special education teacher doctor in 2 days or if symptoms worsen and continue return to emergency room as soon as possible. Referrals: PRIMARY MD NENA [Referring] - 3-5 Days KETURAH TERRAZAS MD [Staff Physician] - 3-5 Days CORWIN PETERSEN MD [Staff Physician] - 05/16/20 Forms: Work/School Release Form(ED)
[2020-05-15 16:56] LABS: HCG Qualitative,Urine Negative (Negative)
[2020-05-15 18:48] VITALS: BP 146/86
== END 2020-05-15 18:48 | disposition home or self-care (01) ==
LOC: ED 12:54
DX: R07.89 Other chest pain (principal); F41.9 Anxiety disorder, unspecified; Z98.890 Other specified postprocedural states; Z79.899 Other long term (current) drug therapy
CPT/HCPCS: 36415; 71046; 80053; 81001; 81025; 84484; 84703; 85025; 85379; 93005; 99284